=== PATIENT | female | born 1990 | race Two or more races ===

== ENCOUNTER 2020-12-26 01:04 | Observation (INO) | payer MEDICAID, OTHER ==
[2020-12-26 02:41] LABS: Urine Bacteria NONE SEEN /hpf (None Seen); Urine Blood Negative /uL (Negative); Urine Mucus FEW (None Seen); Urine Specific Gravity 1.025 (1.001-1.035); Urine WBC 1 /hpf (0 - 5)
[2020-12-26 02:54] LABS: Alcohol, Urine < 3.0 mg/dL (0-10); Amphetamine Screen, Urine NEGATIVE (NEGATIVE); Barbiturate Scree,Urine NEGATIVE (NEGATIVE); Benzodiazephine Screen, Urine NEGATIVE (NEGATIVE); Cannabinoid Screen, Urine NEGATIVE (NEGATIVE); Cocaine Screen, Urine NEGATIVE (NEGATIVE); Opiate Scree,Urine NEGATIVE (NEGATIVE); Phencyclidine Screen, Urine NEGATIVE (NEGATIVE)
[2020-12-26] MEDS ORDERED: PREN-96 PO (02:57)
== END 2020-12-26 03:08 | disposition home or self-care (01) ==
LOC: LDRP 01:04
PROVIDERS: ADMIT Obstetrics & Gynecology; ATTEND Obstetrics & Gynecology
DX: O42.92 Full-term premature rupture of membranes, unspecified as to length of time between rupture and onset of labor (principal); O62.9 Abnormality of forces of labor, unspecified; Z3A.40 40 weeks gestation of pregnancy; Z79.899 Other long term (current) drug therapy
CPT/HCPCS: 59025; 80307; 81001; 84112; G0378; G0379; Q0114

== ENCOUNTER 2021-01-02 22:29 | Emergency (ER) | payer MEDICAID ==
[~2021-01-02] VITALS: Ht 160 cm; Wt 72.6 kg
[~2021-01-02 22:29] MED LIST: PREN-96 PO
[2021-01-02 23:07] LABS: Basophils # (auto) 0 10 ^3/uL (0-0.2); Basophils % (auto) 0.5 % (0.0-2.0); Eosinophils # (auto) 0.3 10 ^3/uL (0-0.8); Eosinophils % (auto) 3.1 % (0.0-7.0); Hematocrit 25.9 % (36.0-46.0); Hemoglobin 8.6 g/dL (12.2-16.2); Lymphocytes # (auto) 1.9 10 ^3/uL (0.4-5.4); Mean Corpuscular Hemoglobin 30.8 pg (28.0-32.0); Mean Corpuscular Hgb Conc. 33.1 g/dL (32.0-36.0); Mean Corpuscular Volume 92.8 fL (80.0-100.0); Monocytes # (auto) 0.3 10 ^3/uL (0-1.3); Monocytes % (auto) 4.2 % (0.0-12.0); Neutrophils # (auto) 5.5 10 ^3/uL (1.6-8.6); Neutrophils % (auto) 68.2 % (37.0-80.0); Red Blood Cells 2.79 10^6/uL (4.0-5.20); Red Cell Distribution Width 14.1 % (11.8-14.3); White Blood Cell 8.1 10^3/uL (4.4-10.8)
[2021-01-02 23:20] LABS: Albumin 2.3 g/dL (3.4-5.0); Calcium 8.2 mg/dL (8.5-10.1); Potassium 3.7 mmol/L (3.5-5.1)
[2021-01-02 23:22] LABS: BUN/Creatinine Ratio 12.2
[2021-01-02 23:25] LABS: Bilirubin, Total 0.2 mg/dL (0.2-1.0); Total Protein 6.3 g/dL (6.4-8.2)
[2021-01-03 00:30] VITALS: BP 110/89
== END 2021-01-03 02:30 | disposition home or self-care (01) ==
LOC: ER 22:30
DX: O90.1 Disruption of perineal obstetric wound (principal); N93.8 Other specified abnormal uterine and vaginal bleeding
CPT/HCPCS: 36415; 80053; 85025

== ENCOUNTER → 2022-02-07 | Emergency (ER) | payer MEDICAID ==
[~2022-02-07] VITALS: Ht 160 cm; Wt 67.0 kg
[~2022-02-07] MED LIST changes: +NITR-87 PO
[2022-02-07 21:19] VITALS: BP 111/67
[2022-02-07 22:22] LABS: Basophils # (auto) 0 10 ^3/uL (0-0.2); Basophils % (auto) 0.2 % (0.0-2.0); Eosinophils # (auto) 0.2 10 ^3/uL (0-0.8); Eosinophils % (auto) 2.2 % (0.0-7.0); Hematocrit 35.4 % (36.0-46.0); Hemoglobin 11.9 g/dL (12.2-16.2); Lymphocytes % (auto) 21.4 % (10.0-50.0); Mean Corpuscular Hemoglobin 30.1 pg (28.0-32.0); Mean Corpuscular Hgb Conc. 33.7 g/dL (32.0-36.0); Mean Corpuscular Volume 89.5 fL (80.0-100.0); Monocytes # (auto) 0.5 10 ^3/uL (0-1.3); Monocytes % (auto) 5.6 % (0.0-12.0); Neutrophils # (auto) 6.5 10 ^3/uL (1.6-8.6); Neutrophils % (auto) 70.6 % (37.0-80.0); Nucleated Red Blood Cells % 0.1 %; Red Blood Cells 3.95 10^6/uL (4.0-5.20); Red Cell Distribution Width 13.9 % (11.8-14.3); White Blood Cell 9.2 10^3/uL (4.4-10.8)
[2022-02-07 22:36] LABS: Albumin 3.2 g/dL (3.4-5.0); Calcium 9.1 mg/dL (8.5-10.1); Potassium 3.9 mmol/L (3.5-5.1)
[2022-02-07 22:40] LABS: BUN/Creatinine Ratio 12.5; Bilirubin, Total 0.2 mg/dL (0.2-1.0); Total Protein 7.5 g/dL (6.4-8.2)
[2022-02-07 23:03] LABS: Urine Bacteria NONE SEEN /hpf (None Seen); Urine Blood 3+ /uL (Negative); Urine Mucus FEW (None Seen); Urine Specific Gravity 1.036 (1.001-1.035); Urine WBC 17 /hpf (0 - 5)
== END | disposition home or self-care (01) ==
LOC: ER 20:50
DX: O20.0 Threatened abortion (principal); Z79.899 Other long term (current) drug therapy; Z3A.18 18 weeks gestation of pregnancy
CPT/HCPCS: 36415; 76805; 80053; 81001; 84702; 85025